=== PATIENT | male | born 1995 | race Caucasian/White ===

== ENCOUNTER 2024-09-23 14:37 | Emergency (ER) | payer OTHER, SELFPAY ==
[2024-09-23 14:49] VITALS: BP 126/87
[2024-09-23 16:30] VITALS: BMI 21.2
[2024-09-23] MEDS: TYLENOL 650 MG PO (16:38)
--- NOTE | 2024-09-23 18:00 | ED.GENMED ---
History of Present Illness
General
Chief Complaint: Male Genito-Urinary Symptoms
Source: patient
Exam Limitations: none
Time Seen by Provider: 09/23/24 16:07
Nursing documentation reviewed up to this point in time: agreed with
History of Present Illness
History of Present Illness:
29-year-old male with presents for left testicular pain for the past 2 weeks. History of vasectomy. He states he was drying himself with a towel after showering 2 weeks ago when he felt sudden pain in the left testicle and thinks he may have
twisted it while drying himself. He states the pain subsided some but has been constant since. No worse, just not improving. He denies difficulty urinating pain radiates up from the left testicle during urination.
Past History
Past History
ED Past Medical History: None
ED Past Surgical History: Urological (Vasectomy 2022)
Social History
Tobacco: Non-smoker
Alcohol: None
Personal:
Living: with family
Employment: Employed
Review of Systems
Review of Systems
Allergies reviewed?: Yes
All Other Systems: ROS reviewed and negative except as documented in HPI and ROS
: Reports other (Left testicular discomfort); Denies dysuria
Skin: Reports no symptoms
Phy Exam
Physical Exam
Physical Exam:
GENERAL: No acute distress. A&Ox3.
CONSTITUTIONAL: Afebrile.
EYES: clear, conjunctivae normal
ENMT: moist mucus membranes
RESPIRATORY: Regular respirations, nonlabored, lungs clear.
CARDIOVASCULAR: Regular rate and rhythm, no murmurs, no rubs.
GI: Soft, nontender, normal BS
: Normal-appearing external genitalia, circumcised, tenderness to left testicle with palpation, no palpable masses, no swelling or discoloration noted.
MUSCULOSKELETAL: Moves with ease. Well perfused.
SKIN: Warm, dry, pink
PSYCH: Normal mood and affect. Well kept, interactive and appropriate
NEUROLOGIC: Awake, alert and oriented. No focal neurological deficits
Course
Orders/Labs/Results
Orders:
Orders
09/23/24 14:38
Scrotum US [US Scrotum] Urgent
Comment:
Reason For Exam: pain, swelling L testicle
09/23/24 16:35
Acetaminophen [Tylenol] 650 mg PO NOW STA
Vital Signs
Initial and Last Documented VS:
Initial Vital Signs
Temp Pulse Resp BP Pulse Ox
97.7 F 91 18 126/87 100
09/23/24 14:49 09/23/24 14:49 09/23/24 14:49 09/23/24 14:49 09/23/24 14:49
Last Documented Vital Signs
Temp Pulse Resp BP Pulse Ox
97.7 F 72 18 129/85 96
09/23/24 14:49 09/23/24 18:14 09/23/24 14:49 09/23/24 18:14 09/23/24 18:14
MDM/Problems Addressed
Differential Diagnosis Includes:
Varicocele, epididymal cyst, torsion
MDM/Problems Addressed:
29-year-old male with presents for left testicular pain for the past 2 weeks. History of vasectomy. He states he was drying himself with a towel after showering 2 weeks ago when he felt sudden pain in the left testicle and thinks he may have
twisted it while drying himself. He states the pain subsided some but has been constant since. No worse, just not improving. He denies difficulty urinating pain radiates up from the left testicle during urination.
He went to urgent care initially and was sent here as they do not do ultrasounds
US Scrotum Radiology report read:
IMPRESSION: Normal appearance of both testes with normal color and spectral Doppler imaging.
On the right, small simple cyst within the right epididymal body. Small right hydrocele.
On the left, simple cyst and complex cyst within the left epididymal head. Mild left varicocele is present.
Patient given copy of ultrasound result and refer to urology for follow
Discussed the findings
All questions answered
*Critical Care Note
Total Time (30-74mins, 75-104mins- exclusive of procedures): Not Applicable
ED Attending Note
-
Portions of this chart may have been created with voice recognition software.� Occasional wrong word or��sound alike� substitutions may have occurred due to the inherent limitations of voice recognition software.
Discharge Plan
Departure
Patient Disposition: Home (Routine Discharge)
Date of Disposition: 09/23/24
Time of Disposition: 18:03
Patient with high blood pressure during this ER visit?: No
Condition: Good
Discharge Problem:
Cyst of testis
Instructions: How to Perform a Testicular Self-Exam, Testicular Injury
Referrals:
NONE,* [Family Provider] -
Carlos Galvin MD [Active] - Call in 1-3 days for appt
Activity Restrictions/Additional Instructions:
As we discussed, wear supportive underwear, keep the testicles elevated when at rest is much as you can (roll up a small washcloth when laying down and set it under the testicles to keep them elevated).
Ibuprofen as needed for pain
Make an appointment with urologist sometime within the next couple of months to discuss the cysts seen and perhaps they may want to do a follow-up ultrasound to make sure there are no changes.
Interventions
Interventions:
*Risk Screen - Suicide Last Done: 09/23/24 14:49
*General Assessment Last Done: 09/23/24 14:49
*Neglect/Abuse Screening Last Done: 09/23/24 14:49
*ED- Fall Risk Assessment Last Done: 09/23/24 16:30
*ED COVID-19 Vaccine History Last Done: 09/23/24 16:30
*Nursing Disposition Last Done: 09/23/24 18:17
ED-Male Genitourinary Assessment Last Done: 09/23/24 16:31
Discharge Date and Time
Discharge Date/Time: 09/23/24 18:18
Print Language: CYMRO
[2024-09-23 18:14] VITALS: BP 129/85
== END 2024-09-23 18:18 | disposition home or self-care (01) ==
LOC: EMR 14:37
PROVIDERS: EMERGENCY PHYSICIAN Emergency Medicine
DX: N44.2 Benign cyst of testis (principal); N43.3 Hydrocele, unspecified; I86.1 Scrotal varices; Z98.52 Vasectomy status
CPT/HCPCS: 99284; 76870; 93976